=== PATIENT | female | born 1975 | race American Indian/Alaskan Native ===

== ENCOUNTER 2017-02-03 04:58 | Emergency (ER) | payer MEDICARE ==
[2017-02-03 04:58] VITALS: BMI 22.6
--- NOTE | 2017-02-03 05:49 | ED PDOC ---
Arrival/HPI <JuventinoRoge - Last Filed: 02/03/17 06:08> - General Historian: Patient <Rosio Roldan - Last Filed: 02/03/17 07:06> - General Chief Complaint: Female Genitourinary Time Seen by Provider: 02/03/17 05:24 - History of Present Illness Narrative History of Present Illness (Text): 02/03/17 05:44 41 year old female with past medical history left atrophic kidney and chronic back pain presents to the ED with right flank pain. Patient reports the pain started 1 week ago suddenly. The pain is located at right flank and travels down to her pubic region. Patient also reports to have dark urine and dysuria. Patient tried taking Monistat but it did not provide any relief. Patient denies having headache, fever, chills, shortness of breath, chest pain, nausea, vomiting, diarrhea. (Rosio Roldan) Past Medical History - Provider Review Nursing Documentation Reviewed: Yes - Infectious Disease Hx of Infectious Diseases: None - Tetanus Immunization Tetanus Immunization: Unknown - Past Medical History Past Medical History: No Previous - Cardiac Hx Cardiac Disorders: No Hx Hypertension: Yes - Pulmonary Hx Respiratory Disorders: Yes (SINUSITIS) - Neurological Hx Neurological Disorder: Yes (neurapathy lle) Hx Migraine: Yes - HEENT Hx HEENT Disorder: No (wears glasses) - Renal Hx Renal Disorder: No (RENAL CYSTS) Other/Comment: atrophic left kidney - Endocrine/Metabolic Hx Endocrine Disorders: No - Hematological/Oncological Hx Blood Disorders: No - Integumentary Hx Dermatological Disorder: No - Musculoskeletal/Rheumatological Hx Back Pain: Yes Hx Falls: No Other/Comment: left leg neuropathy - Gastrointestinal Hx Gastrointestinal Disorders: Yes (GASTRIC BYPASS 2009,SBO 2009) Hx Gall Bladder Disease: Yes (CHOLECYSTECTOMY) Other/Comment: peptic ulcer - Genitourinary/Gynecological Hx Genitourinary Disorders: Yes (BARTHOLIN GLAND CYST ABSCESS,OVARIAN CYST, VAGINAL LACERATION H/O,C/S X 1) Other/Comment: ovarian cyst vaginal laceration, long periods x2 months, last one lasted 9 days - Psychiatric Hx Anxiety: Yes Hx Depression: Yes Hx Substance Use: Yes (on medical marijuana for back pain) - Past Surgical History Past Surgical History: No Previous - Surgical History Hx Cholecystectomy: Yes (2009) Hx Gastric Bypass Surgery: Yes (2009) - Anesthesia Hx Anesthesia: Yes Hx Anesthesia Reactions: No Hx Malignant Hyperthermia: No - Suicidal Assessment Feels Threatened In Home Enviroment: No <Rosio Roldan - Last Filed: 02/03/17 07:06> Family/Social History - Physician Review Nursing Documentation Reviewed: Yes Family/Social History: Unknown Family HX Smoking Status: Never Smoked Hx Alcohol Use: No Hx Substance Use: Yes (on medical marijuana for back pain) Substance used: marijuana program Amount: 20 Hx Substance Use Treatment: No <Rosio Roldan - Last Filed: 02/03/17 07:06> Allergies/Home Meds <Roge Jauregui - Last Filed: 02/03/17 06:08> <Rosio Roldan - Last Filed: 02/03/17 07:06> Allergies/Adverse Reactions: Allergies latex Allergy (Verified 03/18/16 17:47) ITCHING Home Medications: Home Meds Medication Instructions Recorded Confirmed LORazepam [Ativan] 2 mg PO BID 01/09/14 02/03/17 Adderall 20 mg PO BID 03/07/15 02/03/17 Oxycodone HCl/Acetaminophen 1 each PO QID 06/03/16 02/03/17 [Percocet 10-325 mg Tablet] Fluoxetine HCl [Prozac] 40 mg PO DAILY 02/03/17 02/03/17 Review of Systems - Physician Review All systems were reviewed & negative as marked: Yes - Review of Systems Constitutional: Normal. absent: Fatigue, Weight Change, Fevers Eyes: Normal. absent: Vision Changes, Photophobia ENT: Normal. absent: Hearing Changes, Tinnitus Respiratory: Normal. absent: SOB, Cough, Sputum, Wheezing Cardiovascular: Normal. absent: Chest Pain, Palpitations, Edema, Syncope Gastrointestinal: Abdominal Pain (right flank pain). absent: Diarrhea, Nausea, Vomiting Genitourinary Female: Dysuria, Other (dark urine color) Skin: Normal. absent: Skin Lesions, Cellulitis Endocrine: Normal. absent: Diaphoresis, Polyuria, Polydipsia Hemo/Lymphatic: Normal Psychiatric: Normal <Rosio Roldan - Last Filed: 02/03/17 07:06> Physical Exam Vital Signs Reviewed: Yes Temperature: Afebrile Blood Pressure: Hypertensive Pulse: Regular Respiratory Rate: Normal Appearance: Positive for: Well-Appearing, Non-Toxic Pain Distress: Mild Mental Status: Positive for: Alert and Oriented X 3 - Systems Exam Head: Present: Atraumatic, Normocephalic Pupils: Present: PERRL Extroacular Muscles: Present: EOMI Conjunctiva: Present: Normal Mouth: Present: Moist Mucous Membranes Neck: Present: Normal Range of Motion Respiratory/Chest: Present: Clear to Auscultation, Good Air Exchange. No: Respiratory Distress, Accessory Muscle Use Cardiovascular: Present: Regular Rate and Rhythm, Normal S1, S2. No: Murmurs Abdomen: Present: Tenderness (right flank and pubic), Normal Bowel Sounds. No: Distention, Hernias Back: Present: CVA Tenderness (right side) Upper Extremity: Present: Normal Inspection, Neurovascularly Intact. No: Cyanosis, Edema Lower Extremity: Present: Normal Inspection, Neurovascularly Intact. No: Edema Neurological: Present: GCS=15, CN II-XII Intact, Speech Normal, Normal Sensory Function Skin: Present: Warm, Dry, Normal Color. No: Rashes Psychiatric: Present: Alert, Oriented x 3, Normal Insight, Normal Concentration <Rosio Roldan - Last Filed: 02/03/17 07:06> Vital Signs Pulse Resp BP Pulse Ox 02/03/17 06:15 59 L 16 131/86 96 02/03/17 05:18 67 18 154/65 H 100 Medical Decision Making <Roge Jauregui - Last Filed: 02/03/17 06:08> <Rosio Roldan - Last Filed: 02/03/17 07:06> ED Course and Treatment: Impression: Pt seen and evaluated with medical health researcher. Pt, whose past medical history includes left atrophic kidney and chronic back pain, presented complaining of right flank pain for 1 week. Reports associated dark urine and dysuria. Aware and agree with HPI, clinical findings, plan, and management. Plan: -- CT Abdomen and Pelvis w/o contrast -- Labs -- Urinalysis, urine culture -- IV fluids -- Toradol -- Reassess and disposition (Roge Jauregui) 02/03/17 05:59 -CBC, CMP -UA -Urine culture -CT abd pelvis -IVF -Toradol 02/03/17 07:00 Case endorsed to daytime ED attending (Rosio Roldan) - Lab Interpretations Lab Results: 02/03/17 05:35 02/03/17 05:35 Lab Results 02/03/17 05:35: Sodium 141, Potassium 3.8, Chloride 105, Carbon Dioxide 26, Anion Gap 14, BUN 14, Creatinine 1.0, Est GFR ( Amer) > 60, Est GFR (Non- Af Amer) > 60, Random Glucose 81, Calcium 8.7, Total Bilirubin 0.4, AST 41 H, ALT 25, Alkaline Phosphatase 101, Total Protein 6.9, Albumin 3.8, Globulin 3.1, Albumin/Globulin Ratio 1.2 02/03/17 05:35: Urine Color Yellow, Urine Appearance Sl cloudy, Urine pH 6.5, Ur Specific Maury 1.010, Urine Protein Negative, Urine Glucose (UA) Negative, Urine Ketones Negative, Urine Blood Moderate H, Urine Nitrate Negative, Urine Bilirubin Negative, Urine Urobilinogen 1.0 H, Ur Leukocyte Esterase Negative, Urine RBC 5 - 10, Urine WBC 0 - 2, Ur Epithelial Cells 0 - 2 02/03/17 05:35: WBC 4.3 L, RBC 3.83, Hgb 9.6 L, Hct 31.5 L, MCV 82.2, MCH 25.1, MCHC 30.5 L, RDW 21.2 H, Plt Count 231, MPV 10.1, Gran % 68.3 H, Lymph % (Auto) 23.2, [place] % (Auto) 6.1 H, Eos % (Auto) 1.9, Baso % (Auto) 0.5, Gran # 2.91, Lymph # 1.0 L, Pickens # 0.3, Eos # 0.1, Baso # 0.02 - RAD Interpretation Radiology Orders: 02/03/17 05:52 ABDOMEN & PELVIS [ABD & PELVIS W/O PO OR IV CONT] [CT] Stat - Medication Orders Current Medication Orders: Sodium Chloride (Sodium Chloride 0.9%) 1,000 mls @ 100 mls/hr IV .Q10H NIMESH Last Admin: 02/03/17 06:01 Dose: 100 mls/hr Discontinued Medications Ketorolac Tromethamine (Toradol) 30 mg IVP STAT STA Stop: 02/03/17 05:43 Last Admin: 02/03/17 06:02 Dose: 30 mg - PA / SERVICE CENTER REPRESENTATIVE / Resident Statement TOÑO has reviewed & agrees with the documentation as recorded. TOÑO has examined the patient and agrees with the treatment plan. <Roge Jauregui - Last Filed: 02/03/17 06:08> Disposition/Present on Arrival <Roge Jauregui - Last Filed: 02/03/17 06:08> - Present on Arrival Any Indicators Present on Arrival: No History of DVT/PE: No History of Uncontrolled Diabetes: No Urinary Catheter: No History of Decub. Ulcer: No History Surgical Site Infection Following: None - Disposition Have Diagnosis and Disposition been Completed?: No Disposition Time: 07:06 <Rosio Roldan - Last Filed: 02/03/17 07:06> - Disposition Diagnosis: UTI (urinary tract infection) Condition: STABLE
[2017-02-03] MEDS ORDERED: Sodium Chloride 0.9% 1,000 ML IV SCH (06:00)
[2017-02-03 06:15] VITALS: RESP 16
[2017-02-03 06:26] LABS: BASO # 0.02 K/mm3 (0.0-2.0); BASO % 0.5 % (0.0-3.0); EOS # 0.1 (0.0-0.7); EOS % 1.9 % (1.5-5.0); GRAN # 2.91 (1.4-6.5); GRAN % 68.3 % (50.0-68.0); HEMOGLOBIN 9.6 gm/dL (12.0-16.0); LYMPH % 23.2 % (22.0-35.0); MEAN CELL VOLUME 82.2 fL (80.0-105.0); MEAN CORPUSCULAR HEMOGLOBIN 25.1 pg (25.0-35.0); MEAN CORPUSCULAR HGB CONC 30.5 g/dl (31.0-37.0); MEAN PLATELET VOLUME 10.1 fl (7.0-11.0); MONO # 0.3 (0.1-0.6); MONO % 6.1 % (1.0-6.0); PLATELET COUNT 231 10^3/uL (120.0-450.0); RBC 3.83 10^6/uL (3.5-6.1); RED CELL DISTRIBUTION WIDTH 21.2 % (11.5-14.5); WHITE BLOOD COUNT 4.3 10^3/ul (4.5-11.0)
[2017-02-03 06:28] LABS: PH,URINE 6.5 (4.7-8.0); URINE BILIRUBIN NEGATIVE (NEGATIVE); URINE BLOOD MODERATE (NEGATIVE); URINE GLUCOSE (UA) NEGATIVE (NEGATIVE); URINE LEUKOCYTE ESTERASE NEGATIVE Leu/uL (NEGATIVE); URINE NITRATE NEGATIVE (NEGATIVE); URINE PROTEIN NEGATIVE mg/dL (<30 mg/dL)
[2017-02-03 06:44] LABS: URINE APPEARANCE SL CLOUDY (CLEAR); URINE COLOR YELLOW (YELLOW)
[2017-02-03 06:48] LABS: ALB/GLOB RATIO 1.2 (1.1-1.8); ALBUMIN 3.8 g/dL (3.0-4.8); ALT/SGPT 25 U/L (7-56); AST/SGOT 41 U/L (15-39); BLOOD UREA NITROGEN 14 mg/dL (7-21); CALCIUM 8.7 mg/dL (8.4-10.5); GFR AFRICAN-AMERICAN > 60; GFR NON-AFRICAN AMERICAN > 60
[2017-02-03 06:50] LABS: URINE EPITHELIAL CELLS 0 - 2 /hpf (0-5); URINE WBC 0 - 2 /hpf (0-6)
--- NOTE | 2017-02-03 07:24 | CT ---
EXAM: CT Abdomen and Pelvis Without Intravenous Contrast CLINICAL HISTORY: 41 years old, female; Pain; Abdominal pain; Flank; Right lower quadrant (rlq); Additional info: Flank pain, kideny stone, pyelonephritis TECHNIQUE: Axial computed tomography images of the abdomen and pelvis without intravenous contrast. This CT exam was performed using one or more of the following dose reduction techniques: automated exposure control, adjustment of the mA and/or kV according to patient size, and/or use of iterative reconstruction technique. Coronal and sagittal reformatted images were created and reviewed. EXAM DATE/TIME: 02/03/2017 5:52 AM COMPARISON: CT - ABD PELVIS W/O PO OR IV CONT 03/18/2016 9:20:11 PM FINDINGS: Evidence of surgery in the upper abdomen. IVC filter. The liver, spleen, and pancreas appear grossly normal on this non-contrast study. Nonvisualized left kidney. Right renal cysts and right renal calcifications similar to prior. The right renal pelvis is unchanged in diameter from prior. No obstructing calculi. Pelvic phleboliths. The uterus and ovaries are grossly normal. The colon is distended with stool consistent with constipation. A normal appendix is identified coronal images 38 through 41 measuring 5 mm in diameter. Calcifications changes similar to prior in the paraspinal musculature. IMPRESSION: Constipation.
[2017-02-03 09:23] VITALS: BP 143/80; PULSE 50; TEMP 98; O2SAT 98
== END 2017-02-03 09:35 | disposition home or self-care (01) ==
LOC: ED 04:58
DX: N39.0 Urinary tract infection, site not specified (principal); I12.9 Hypertensive chronic kidney disease with stage 1 through stage 4 chronic kidney disease, or unspecified chronic kidney disease; N18.9 Chronic kidney disease, unspecified
CPT/HCPCS: 74176; 80053; 81001; 85025; 87086; 96374; 99284; J1885; J7040

== ENCOUNTER 2017-02-28 20:06 | Emergency (ER) | payer MEDICARE ==
[2017-02-28 20:46] VITALS: BMI 21.8
[2017-02-28 20:52] VITALS: RESP 16; TEMP 98.4
[2017-02-28 21:24] LABS: URINE BILIRUBIN NEGATIVE (NEGATIVE); URINE BLOOD TRACE-INTACT (NEGATIVE); URINE GLUCOSE (UA) NEGATIVE (NEGATIVE); URINE LEUKOCYTE ESTERASE NEGATIVE Leu/uL (NEGATIVE); URINE NITRATE NEGATIVE (NEGATIVE); URINE PROTEIN NEGATIVE mg/dL (<30 mg/dL); URINE UROBILINOGEN 0.2 E.U./dL (<1 E.U./dL)
[2017-02-28 21:31] LABS: URINE APPEARANCE CLEAR (CLEAR); URINE COLOR YELLOW (YELLOW)
[2017-02-28 21:33] LABS: URINE WBC 0 - 2 /hpf (0-6)
--- NOTE | 2017-02-28 22:01 | ED PDOC ---
Arrival/HPI - General Historian: Patient - History of Present Illness Time/Duration: < week (couple day ago) Symptom Onset: Gradual Symptom Course: Unchanged Activities at Onset: Rest, Light Context: Home <Quinton Ortiz - Last Filed: 02/28/17 22:41> <Larisa Vazquez PA-C - Last Filed: 02/28/17 23:06> - General Chief Complaint: Female Genitourinary Time Seen by Provider: 02/28/17 20:26 - History of Present Illness Narrative History of Present Illness (Text): 02/28/17 22:00 A 41 year old female, whose past medical history includes left atrophic kidney and chronic back pain, present to the emergency department complaining of tea- color urine and dysuria for a couple of days. Patient reports having taken over -the-counter medications and symptoms improved, but still has dark urine. Patient became concerned and decided to come to the emergency department for evaluation. Also, patient mentions having lower right quadrant intermittent pain 4 weeks ago and came into the emergency department several weeks ago. Patient denies of any nausea, vomiting, diarrhea, or any other complaints. (Quinton Otriz) On further questioning, pt states that she has itchiness to her vaginal area, but reports no vaginal d/c or bleeding and no dyspareunia. Reports that she did finish a full course of antibiotics which was Rx on her last ED visit here. (Larisa Vazquez PA-C) Past Medical History - Provider Review Nursing Documentation Reviewed: Yes - Infectious Disease Hx of Infectious Diseases: None - Tetanus Immunization Tetanus Immunization: Unknown - Past Medical History Past Medical History: No Previous - Cardiac Hx Cardiac Disorders: No Hx Hypertension: Yes - Pulmonary Hx Respiratory Disorders: Yes (SINUSITIS) - Neurological Hx Neurological Disorder: Yes (neurapathy lle) Hx Migraine: Yes - HEENT Hx HEENT Disorder: No (wears glasses) - Renal Hx Renal Disorder: No (RENAL CYSTS) Other/Comment: atrophic left kidney - Endocrine/Metabolic Hx Endocrine Disorders: No - Hematological/Oncological Hx Blood Disorders: No - Integumentary Hx Dermatological Disorder: No - Musculoskeletal/Rheumatological Hx Back Pain: Yes Hx Falls: No Other/Comment: left leg neuropathy - Gastrointestinal Hx Gastrointestinal Disorders: Yes (GASTRIC BYPASS 2009,SBO 2009) Hx Gall Bladder Disease: Yes (CHOLECYSTECTOMY) Other/Comment: peptic ulcer - Genitourinary/Gynecological Hx Genitourinary Disorders: Yes (BARTHOLIN GLAND CYST ABSCESS,OVARIAN CYST, VAGINAL LACERATION H/O,C/S X 1) Other/Comment: ovarian cyst vaginal laceration, long periods x2 months, last one lasted 9 days - Psychiatric Hx Anxiety: Yes Hx Depression: Yes Hx Substance Use: Yes (on medical marijuana for back pain) - Past Surgical History Past Surgical History: No Previous - Surgical History Hx Cholecystectomy: Yes (2009) Hx Gastric Bypass Surgery: Yes (2009) - Anesthesia Hx Anesthesia: Yes Hx Anesthesia Reactions: No Hx Malignant Hyperthermia: No - Suicidal Assessment Feels Threatened In Home Enviroment: No <Quinton Ortiz - Last Filed: 02/28/17 22:41> Family/Social History - Physician Review Nursing Documentation Reviewed: Yes Family/Social History: No Known Family HX Smoking Status: Light Smoker < 10 Cigarettes Daily Hx Alcohol Use: No Hx Substance Use: Yes (on medical marijuana for back pain) Substance used: marijuana program Amount: 20 Hx Substance Use Treatment: No <Quinton Ortiz - Last Filed: 02/28/17 22:41> Allergies/Home Meds <Quinton Ortiz - Last Filed: 02/28/17 22:41> <Larisa Vazquez PA-C - Last Filed: 02/28/17 23:06> Allergies/Adverse Reactions: Allergies latex Allergy (Verified 03/18/16 17:47) ITCHING Home Medications: Home Meds Medication Instructions Recorded Confirmed LORazepam [Ativan] 2 mg PO BID 01/09/14 02/28/17 Adderall 20 mg PO BID 03/07/15 02/28/17 Oxycodone HCl/Acetaminophen 1 each PO QID 06/03/16 02/28/17 [Percocet 10-325 mg Tablet] Fluoxetine HCl [Prozac] 40 mg PO DAILY 02/03/17 02/28/17 Review of Systems - Physician Review All systems were reviewed & negative as marked: Yes - Review of Systems Constitutional: absent: Fevers, Night Sweats Gastrointestinal: absent: Diarrhea, Nausea, Vomiting Genitourinary Female: Dysuria, Urine Output Changes (tea-colored urine) <Quinton Ortiz - Last Filed: 02/28/17 22:41> Physical Exam Vital Signs Reviewed: Yes Temperature: Afebrile Blood Pressure: Normal Pulse: Regular Respiratory Rate: Normal Appearance: Positive for: Well-Appearing Pain Distress: None Mental Status: Positive for: Alert and Oriented X 3 - Systems Exam Head: Present: Atraumatic, Normocephalic Pupils: Present: PERRL Extroacular Muscles: Present: EOMI Conjunctiva: Present: Normal Mouth: Present: Moist Mucous Membranes Neck: Present: Normal Range of Motion Respiratory/Chest: Present: Clear to Auscultation, Good Air Exchange. No: Respiratory Distress, Accessory Muscle Use Cardiovascular: Present: Regular Rate and Rhythm, Normal S1, S2. No: Murmurs Abdomen: Present: Normal Bowel Sounds. No: Tenderness, Distention, Peritoneal Signs Back: Present: Normal Inspection Upper Extremity: Present: Normal Inspection. No: Cyanosis, Edema Lower Extremity: Present: Normal Inspection. No: Edema Neurological: Present: GCS=15, CN II-XII Intact, Speech Normal Skin: Present: Warm, Dry, Normal Color. No: Rashes Psychiatric: Present: Alert, Oriented x 3, Normal Insight, Normal Concentration <Quinton Ortiz - Last Filed: 02/28/17 22:41> - Systems Exam Genitourinary/Pelvic Exam: Present: Normal External Genitalia, Vaginal Discharge (thick white d/c), Cervical os Closed, Other (ELEVATOR TROUBLESHOOTER was present during the entire exam). No: Vaginal Bleeding, Vaginal Lesions, Adenexal Tenderness, Adenexal Mass, Cervical Motion Tendernes <Larisa Vazquez PA-C - Last Filed: 02/28/17 23:06> Vital Signs Temp Pulse Resp BP Pulse Ox 02/28/17 22:51 16 97 02/28/17 22:10 76 16 142/97 H 97 02/28/17 20:51 98.4 F 89 16 161/102 H 100 02/28/17 20:45 98.4 F 89 16 161/102 H 100 Medical Decision Making <Quinton Ortiz - Last Filed: 02/28/17 22:41> <Larisa Vazquez PA-C - Last Filed: 02/28/17 23:06> ED Course and Treatment: 02/28/17 22:15 Impression: 41 year old female with tea-colored urine and dysuria. Normal physical exam. Plan: -- Urinalysis -- Urine Culture -- Reassess and disposition Prior Visits: Notes and results from previous visits were reviewed. Patient was last seen in the emergency department on 02/03/2017 for left flank pain. Progress Notes: (Quinton Ortiz) Previous medical records reviewed, pt seen and evaluated on 02/03/17 for RLQ pain and dark urine. During that visit, the pt had a CT A/P which showed constipation. Labs Hgb 9.6 / Hct 31.5, CMP wnl, UA +moderate blood. Pt was given Rx for macrobid. Today UA shows +trace blood, otherwise is wnl, uhcg is (-). On pelvic exam, pt noted to have vaginal candidiasis and was given a dose of diflucan 150 mg po. Given RX for clotrimazole. UA results d/w the pt in great detail and notified of diagnosis of vaginal candidiasis. Advised to follow up with primary care physician in 1-2 days without fail. Advised to take medication as prescribed. Return to the emergency room at any time for any new or worsening symptoms. Patient states she fully agrees with and understands discharge instructions. States that she agrees with the plan and disposition. Verbalized and repeated discharge instructions and plan. I have given the patient opportunity to ask any additional questions. (George OROZCO,Larisa Blair) - Lab Interpretations Lab Results: Lab Results 02/28/17 21:15: Urine Color Yellow, Urine Appearance Clear, Urine pH 6.0, Ur Specific Parker 1.020, Urine Protein Negative, Urine Glucose (UA) Negative, Urine Ketones Negative, Urine Blood Trace-intact H, Urine Nitrate Negative, Urine Bilirubin Negative, Urine Urobilinogen 0.2, Ur Leukocyte Esterase Negative , Urine RBC 1 - 3, Urine WBC 0 - 2, Ur Epithelial Cells 6 - 8 - Medication Orders Current Medication Orders: Discontinued Medications Fluconazole (Diflucan) 150 mg PO DAILY NIMESH PRN Reason: Protocol Fluconazole (Diflucan) 150 mg PO STAT STA PRN Reason: Protocol Stop: 02/28/17 22:41 Last Admin: 02/28/17 22:50 Dose: 150 mg - Scribe Statement The provider has reviewed the documentation as recorded by the Scribe <Quinton Ortiz - Last Filed: 02/28/17 22:41> - PA / INSPECTOR [employer] / Resident Statement MD/DO has reviewed & agrees with the documentation as recorded. <Larisa Vazquez PA-C - Last Filed: 02/28/17 23:06> - Scribe Statement Dominic Rahman Provider Scribe Attestation: All medical record entries made by the Scribe were at my direction and personally dictated by me. I have reviewed the chart and agree that the record accurately reflects my personal performance of the history, physical exam, medical decision making, and the department course for this patient. I have also personally directed, reviewed, and agree with the discharge instructions and disposition. (Quinton Ortiz) Disposition/Present on Arrival - Present on Arrival History of DVT/PE: No History of Uncontrolled Diabetes: No Urinary Catheter: No History of Decub. Ulcer: No History Surgical Site Infection Following: None <Quinton Ortiz - Last Filed: 02/28/17 22:41> - Present on Arrival Any Indicators Present on Arrival: No History of DVT/PE: No History of Uncontrolled Diabetes: No Urinary Catheter: No History of Decub. Ulcer: No - Disposition Have Diagnosis and Disposition been Completed?: Yes Disposition Time: 22:30 Patient Plan: Discharge <Larisa Vazquez PA-C - Last Filed: 02/28/17 23:06> - Disposition Diagnosis: Vaginal candidiasis Disposition: HOME/ ROUTINE Condition: STABLE Discharge Instructions (ExitCare): Vulvovaginal Candidiasis (ED) Print Language: ANDORRAN Additional Instructions: Thank you for letting us take care of you today. You were treated for vaginal candidiasis. The emergency medical care you received today was directed at your acute symptoms. If you were prescribed any medication, please fill it and take as directed. It may take several days for your symptoms to resolve. Return to the Emergency Department if your symptoms worsen, do not improve, or if you have any other problems. Please contact your doctor in 2 days for re-evaluation and follow up. Bring any paperwork you were given at discharge with you along with any medications you are taking to your follow up visit. Our treatment cannot replace ongoing medical care by a primary care provider (PCP) outside of the emergency department. Thank you for allowing the [facility] team to be part of your care today. Prescriptions: Clotrimazole 1% Cream [Lotrimin 1%] 30 applic EXT BID #1 tube Forms: [facility] (American), WORK NOTE
[2017-02-28 22:11] VITALS: BP 142/97; PULSE 76; O2SAT 97
== END 2017-02-28 22:59 | disposition home or self-care (01) ==
LOC: ED 20:06
DX: B37.3 Candidiasis of vulva and vagina (principal); I10 Essential (primary) hypertension; N26.1 Atrophy of kidney (terminal); Z72.0 Tobacco use

== ENCOUNTER 2017-05-09 16:41 | Emergency (ER) | payer MEDICARE ==
[2017-05-09 16:55] VITALS: BMI 20.5
[2017-05-09 16:59] VITALS: PULSE 72; TEMP 98.6; O2SAT 100
[2017-05-09] MEDS ORDERED: Oxycodone/Acetaminophen 5/325 mg Tab PO STA (17:26)
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
[2017-05-09 21:01] VITALS: BP 142/87; RESP 16
--- NOTE | 2017-05-10 08:13 | RAD ---
PROCEDURE: Left Hip and pelvis X-ray Radiographs. HISTORY: trauma COMPARISON: None. FINDINGS: BONES: Normal. No fracture. JOINTS: Normal. SOFT TISSUES: Normal. OTHER FINDINGS: None. IMPRESSION: Negative study
== END 2017-05-09 20:54 | disposition home or self-care (01) ==
LOC: ED 16:41
DX: S30.0XXA Contusion of lower back and pelvis, initial encounter (principal); W19.XXXA Unspecified fall, initial encounter; Y93.89 Activity, other specified; Y92.89 Other specified places as the place of occurrence of the external cause

== ENCOUNTER 2018-09-23 19:20 | Observation (INO) | payer MEDICARE, OTHER | END 2018-09-24 21:00 | disposition left against medical advice (07) | LOC: ERH 09-24 02:37 → ED 19:20 → 5RSO 09-24 04:17 ==